=== PATIENT | female | born 1965 | race Caucasian/White ===

== ENCOUNTER 2018-06-09 13:48 | Emergency (ER) | payer OTHER ==
[~2018-06-09] VITALS: Ht 160 cm; Wt 71.7 kg
[~2018-06-09 13:48] MED LIST: BLEPH-105 ML OP; OPCON-A EYE DRO15 ML OP; ZITHROMAX250 MG ORAL
[2018-06-09 14:00] VITALS: BP 122/78
--- NOTE | 2018-06-09 14:00 | NUR ---
ED Nurse Note: PT WALKED IN TO ER TODAY FROM HOME. AOX4. PT C/O BILATERAL LEG SWELLING, ITCHING AND PAIN, 6/10 X 2 DAYS AGO. 1+ PITTING EDEMA NOTED TO BILATERAL LOWER EXTREMITIES. CIRCULATION AND SENSATION INTACT, CAP REFILL <3 SECONDS, FULL ROM OF EXTREMITIES AND 5/5 MUSCLE STRENGTH. GAIT STABLE. PT DENIES INJURY OR TRAUMA.
[2018-06-09] MEDS ORDERED: NKM (14:02)
--- NOTE | 2018-06-09 14:19 | Emergency Room Report ---
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[employer] Denies any flank pain denies any dysuria or frequency Denies any other medication Allergies: Coded Allergies: No Known Allergies (Unverified , 12/04/17) Patient History Past Medical History: see triage record Pertinent Family History: none Last Menstrual Period: menopause Reviewed Nursing Documentation: PMH: Agreed; PSxH: Agreed Nursing Documentation-PMH Past Medical History: No Stated History Review of Systems All Other Systems: negative except mentioned in HPI Physical Exam Vital Signs Date Time Temp Pulse Resp B/P (MAP) Pulse Ox O2 Delivery O2 Flow Rate FiO2 06/09/18 13:56 98.6 67 16 119/77 95 Room Air Sp02 EP Interpretation: reviewed, normal General Appearance: well appearing, no apparent distress Head: normocephalic, atraumatic Eyes: bilateral eye PERRL, bilateral eye EOMI ENT: hearing grossly normal, normal pharynx, TMs + canals normal, uvula midline Neck: full range of motion, supple, no meningismus, no bony tend Respiratory: lungs clear, normal breath sounds, no rhonchi, no respiratory distress, no retraction, no accessory muscle use Cardiovascular #1: normal peripheral pulses, regular rate, rhythm, no gallop, no JVD, no murmur Gastrointestinal: normal bowel sounds, non tender, soft, no mass, no organomegaly, non-distended, no guarding, no hernia, no pulsatile mass, no rebound Genitourinary: no CVA tenderness Musculoskeletal: swelling - Bilateral lower extremities, more specifically on the knee reveal ankle some mild erythema Neurologic: oriented x3, responsive, 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, motor strength/ tone normal, sensory intact Psychiatric: mood/affect normal Skin: other - Edema to both lower extremity Lymphatic: normal inspection, no adenopathy Medical Decision Making Diagnostic Impression: Primary Impression: Edema Additional Impression: Pharyngitis ER Course Multiple differentials considered Kidney function, infectious pathology DVT other vascular pathology Patient's blood work is essentially benign The rash on the left leg appears to be consistent with possible insect bite The edema in the legs needs further outpatient evaluation otherwise does not meet any further emergency criteria Suspicion for DVT is low given the appearance and exam And patient will have close outpatient follow-up Labs Test 06/09/18 14:30 White Blood Count 4.2 K/UL (4.8-10.8) Red Blood Count 4.49 M/UL (4.20-5.40) Hemoglobin 11.9 G/DL (12.0-16.0) Hematocrit 36.8 % (37.0-47.0) Mean Corpuscular Volume 82 FL (80-99) Mean Corpuscular Hemoglobin 26.5 PG (27.0-31.0) Mean Corpuscular Hemoglobin Concent 32.4 G/DL (32.0-36.0) Red Cell Distribution Width 12.9 % (11.6-14.8) Platelet Count 158 K/UL (150-450) Mean Platelet Volume 8.0 FL (6.5-10.1) Neutrophils (%) (Auto) 56.1 % (45.0-75.0) Lymphocytes (%) (Auto) 34.6 % (20.0-45.0) Monocytes (%) (Auto) 7.2 % (1.0-10.0) Eosinophils (%) (Auto) 1.2 % (0.0-3.0) Basophils (%) (Auto) 0.8 % (0.0-2.0) Sodium Level 141 MMOL/L (136-145) Potassium Level 3.9 MMOL/L (3.5-5.1) Chloride Level 104 MMOL/L (98-107) Carbon Dioxide Level 29 MMOL/L (21-32) Anion Gap 8 mmol/L (5-15) Blood Urea Nitrogen 20 mg/dL (7-18) Creatinine 0.9 MG/DL (0.55-1.30) Estimat Glomerular Filtration Rate > 60 mL/min (>60) Glucose Level 90 MG/DL (74-106) Calcium Level 9.1 MG/DL (8.5-10.1) Total Bilirubin 0.3 MG/DL (0.2-1.0) Aspartate Amino Transf (AST/SGOT) 16 U/L (15-37) Alanine Aminotransferase (ALT/SGPT) 17 U/L (12-78) Alkaline Phosphatase 83 U/L (46-116) Total Protein 7.6 G/DL (6.4-8.2) Albumin 3.2 G/DL (3.4-5.0) Globulin 4.4 g/dL Albumin/Globulin Ratio 0.7 (1.0-2.7) Last Vital Signs Date Time Temp Pulse Resp B/P (MAP) Pulse Ox O2 Delivery O2 Flow Rate FiO2 06/09/18 13:56 98.6 67 16 119/77 95 Room Air Status: improved Disposition: HOME, SELF-CARE Condition: Improved Scripts Diphenhydramine HCl/Zinc Acet (Benadryl Itch Stopping Crm) 28.3 Gm Cream..g. 1 APPLIC TOPIC BID for 7 Days, APPLIC Prov: Eddie Jerez DO 06/09/18 Furosemide* (LASIX*) 40 Mg Tablet 20 MG ORAL BID, #10 TAB Prov: Eddie Jerez DO 06/09/18 Amoxicillin/Potassium Clav 875-125* (AUGMENTIN 875-125 TABLET*) 1 Each Tablet 1 TAB ORAL TWICE A DAY, #14 TAB Prov: Eddie Jerez DO 06/09/18 Additional Instructions: Patient is provided with the discharge instructions notified to follow up with primary doctor in the next 2-3 days otherwise return to the er with any worsening symptoms. Please note that this report is being documented using [employer] technology. This can lead to erroneous entry secondary to incorrect interpretation by the dictating instrument. Eddie Jerez DO Jun 09, 2018 14:19
[2018-06-09] MEDS ORDERED: Augmentin 875mg Tab ORAL ONE (14:30)
[2018-06-09 14:49] LABS: BASOPHILS % (AUTO) 0.8 % (0.0-2.0); EOSINOPHILS % (AUTO) 1.2 % (0.0-3.0); HEMATOCRIT 36.8 % (37.0-47.0); HEMOGLOBIN 11.9 G/DL (12.0-16.0); LYMPHOCYTES % (AUTO) 34.6 % (20.0-45.0); MEAN CORPUSCULAR VOLUME 82 FL (80-99); MONOCYTES % (AUTO) 7.2 % (1.0-10.0); NEUTROPHILS % (AUTO) 56.1 % (45.0-75.0); PLATELET COUNT 158 K/UL (150-450); RED BLOOD COUNT 4.49 M/UL (4.20-5.40); RED CELL DISTRIBUTION WIDTH 12.9 % (11.6-14.8); WHITE BLOOD COUNT 4.2 K/UL (4.8-10.8)
[2018-06-09 14:54] LABS: ANION GAP 8 mmol/L (5-15); BLOOD UREA NITROGEN 20 mg/dL (7-18); CALCIUM 9.1 MG/DL (8.5-10.1); CARBON DIOXIDE 29 MMOL/L (21-32); CHLORIDE 104 MMOL/L (98-107); CREATININE 0.9 MG/DL (0.55-1.30); POTASSIUM 3.9 MMOL/L (3.5-5.1); SODIUM 141 MMOL/L (136-145)
[2018-06-09 14:59] LABS: ALANINE AMINOTRANSFERASE 17 U/L (12-78); ALBUMIN 3.2 G/DL (3.4-5.0); ALBUMIN/GLOBULIN RATIO 0.7 (1.0-2.7); ALKALINE PHOSPHATASE 83 U/L (46-116); ASPARTATE AMINO TRANSFERASE 16 U/L (15-37); BILIRUBIN,TOTAL 0.3 MG/DL (0.2-1.0)
[2018-06-09] MEDS ORDERED: AUGMENTIN 875-1 EAC1 ORAL (15:52)
[2018-06-09] MEDS ORDERED: FUROSEMIDE40 MG ORAL (15:52)
[2018-06-09 15:53] VITALS: BP 126/82
--- NOTE | 2018-06-09 15:53 | NUR ---
ED Nurse Note: PT LAYING PEACEFULLY IN BED IN NAD. AOX4. PRESCRIPTIONS AND DISCHARGE PAPERWORK EXPLAINED TO PT. PT VERBALIZES UNDERSTANDING AND ALL QUESTIONS ANSWERED. PRESCRIPTIONS AND DISCHARGE PAPERWORK GIVEN TO PT, IV AND ID WRISTBAND REMOVED. PT WALKED OUT OF ER WITH STEADY GAIT AND ALL BELONGINGS.
[2018-06-09] MEDS ORDERED: BENADRYL CRE1 APPLIC TOPIC (15:56)
== END 2018-06-09 15:53 | disposition home or self-care (01) ==
LOC: EMR 14:08
DX: R60.0 Localized edema (principal); J02.9 Acute pharyngitis, unspecified
CPT/HCPCS: 36415; 80053; 85025; 99284